=== PATIENT | male | born 1995 | race Caucasian/White ===

== ENCOUNTER 2016-06-22 21:35 | Emergency (ER) | payer BC ==
[2016-06-22] MEDS ORDERED: KETOROLAC TROMETHAMINE 60 MG/2 ML VIAL IM ONE (22:05)
[2016-06-22] MEDS ORDERED: HYOSCYAMINE SULFATE 0.125 MG TAB.SUBL SL SCH (23:00)
[2016-06-22 23:02] LABS: eGFR (African) > 60; eGFR (Non-African) > 60
[2016-06-22 23:47] LABS: BASOPHILS % 0.2 (0.0-1.5); MEAN CORPUSCULAR HEMOGLOBIN 30.8 pg (28.0-34.0); MEAN CORPUSCULAR VOLUME 89.4 fl (80.0-100.0); MONOCYTES % 6.2 % (0.0-11.0); NEUTROPHILS # 5.4 # k/uL (1.4-7.7)
[2016-06-23] MEDS ORDERED: PANTOPRAZOLE SODIUM 40 MG TABLET PO ONE (00:09)
[2016-06-23] MEDS ORDERED: METOCLOPRAMIDE HCL 5 MG TABLET PO ONE (00:09)
[2016-06-23] MEDS ORDERED: MAG HYDROX/AL HYDROX/SIMETH 30 ML UDC PO ONE (00:09)
[2016-06-23] MEDS ORDERED: Lidocaine 2%Visc 15ml 20 MG/ML UDC PO ONE (00:10)
[2016-06-23] MEDS ORDERED: MAGNESIUM HYDROXIDE/AL HYDROX 30 ML UDC PO ONE (00:19)
[2016-06-23] MEDS ORDERED: Lidocaine 2%Visc 15ml 20 MG/ML UDC ONE (00:19)
--- NOTE | 2016-06-23 00:33 | Diagnostic Imaging Report ---
ILIR MARIE~ [facility] [id number] [facility] [address] [place], [place]. [address] ~ ~ ~ ~ Report Submission Date: Jun 22, 2016 10:48:37 PM CDT Patient ~ Study Name: JOSE DE JESUS OLMEDO ~ Date: Jun 22, 2016 10:33:26 PM CDT ~ Modality Type: CT\SR Gender: M ~ Description: CT ABD & PELVIS W/O CO : 89 ~ Institution: [facility] Physician: ILIR MARIE ~ ~ ~ ~ CT abdomen and pelvis without contrast CLINICAL HISTORY: ~ Burning and pain in the mid and lower abdomen for 1 day. ~ TECHNIQUE: ~ CT of the abdomen and pelvis is performed without oral or intravenous administration of contrast. ~Sagittal and coronal reconstructions are performed by the technologist. FINDINGS: ~ The liver and spleen demonstrate normal attenuation without focal defect. ~ Gallbladder is normally distended. ~There is no pancreatic or adrenal abnormality. ~The kidneys are of normal size, shape and position. ~There is no retroperitoneal mass or significant adenopathy. ~The appendix is surgically absent. ~There is no free fluid in the pelvis or abdomen. ~Bladder is within normal limits. ~There is air in the right gluteal region presumed from intramuscular injection. IMPRESSION: ~ Postoperative changes. ~ No acute changes in the abdomen or pelvis. ~ Electronically signed on Jun 22, 2016 10:48:37 PM CDT by: Zaki VILLAVICENCIO
[2016-06-23 02:04] VITALS: BP 107/48
[2016-06-23 05:52] LABS: APPEARANCE,URINE CLEAR (CLEAR); COLOR,URINE YELLOW (YELLOW); OCCULT BLOOD,URINE NEGATIVE (NEGATIVE); UROBILINOGEN URINE 0.2 Eu (0.2-1.0)
--- NOTE | 2016-06-23 06:25 | ED Physician Documentation ---
Abdominal Pain - HISTORIAN Historian: patient - HPI Stated Complaint: abd pain Chief Complaint: Abdominal Pain Additonal Information: Pain across abdomen started today, constant, burning. Pt. in recovery program for meth, heroin, etoh, thc Onset: hours (10) Duration: constant Timing: still present Context: denies: out of country travel, bad food, recent trauma Severity: moderate Quality: burning Front/Back of Body, Lg (Color): 1 - pain Associated Symptoms: none Exacerbated by: nothing Relieved by: nothing Further Comments: no - ROS CONST: no problems GI/: other (abd. pain) CVS/RESP: none EYES/ENT: none MS/SKIN/LYMPH: none NEURO/PSYCH: none - SOCIAL HX Smoking History: cigarettes Alcohol Use: none Drug Use: none - FAMILY HX Family History: no significant history - PAST HX Past History: other (htn) Ischemic Bowel Risk Factors: none Other History: other (gallstones) Surgeries/Procedures: cholecystectomy, other (ortho) Immunizations: referred to PCP Home Medications: Ambulatory Orders Medication Instructions Recorded NK [NK] 06/23/16 Allergies/Adverse Reactions: Allergies Allergy/AdvReac Type Severity Reaction Status Date / Time amoxicillin Allergy Intermediate Hives Verified 06/22/16 22:10 - VITAL SIGNS Vital Signs: Vital Signs Temp Pulse Resp BP Pulse Ox 98.1 F 58 L 14 107/48 99 06/22/16 21:36 06/23/16 01:57 06/23/16 01:57 06/23/16 01:57 06/23/16 01:57 - REVIEWED ASSESSMENTS Nursing Assessment Reviewed: Yes Vitals Reviewed: Yes Progress - Results/Orders Results/Orders: cbc, cmp, amylase, ua, ct abd ordered - Progress Progress: pt. given hyoscyamine 0.25 mg, reglan 10 mg p.o. gi cocktail and protonix 40 mg p.o. with sig. improvement in symptoms Critical Care Note - Critical Care Note Total Time (mins): 0 ED Results Lab/Radiology - Lab Results Lab Results: Lab Results 06/23/16 06/22/16 06/22/16 00:30 22:06 22:06 WBC 8.40 K/ul K/ul (4.00-12.00) RBC 4.90 M/ul M/ul (3.90-5.20) Hgb 15.1 g/dL g/dL (12.0-18.0) Hct 43.8 % % (37.0-53.0) MCV 89.4 fl fl (80.0-100.0) MCH 30.8 pg pg (28.0-34.0) MCHC 34.5 g/dL g/dL (30.0-36.0) RDW 13.2 % % (11.3-14.3) Plt Count 196 K/mm3 K/mm3 (130-400) Neut % (Auto) 63.8 % % (39.0-79.0) Lymph % (Auto) 26.4 % % (16.0-50.0) [place] % (Auto) 6.2 % % (0.0-11.0) Eos % (Auto) 2.0 % % (0.0-6.8) Baso % (Auto) 0.2 (0.0-1.5) Neut # 5.4 # k/uL # k/uL (1.4-7.7) Lymph # 2.2 # k/uL # k/uL (0.6-4.0) Kemper # 0.5 # k/uL # k/uL (0.0-0.9) Eos # 0.2 # k/uL # k/uL (0.0-0.6) Baso # 0.0 # k/uL # k/uL (0.0-0.5) Reactive Lymphs % 1.4 % % (0.0-5.0) Reactive Lymphs # 0.1 # k/uL # k/uL (0.0-0.8) Sodium 140 mmol/L mmol/L (136-145) Potassium 4.0 mmol/L mmol/L (3.5-5.0) Chloride 106 mmol/L mmol/L (98-110) Carbon Dioxide 36 mmol/L H mmol/L (20-32) BUN 17 mg/dL mg/dL (10-26) Creatinine 0.8 mg/dL mg/dL (0.4-1.5) Estimated Creat Clear 140 Est GFR ( Amer) > 60 (60 - ) Est GFR (Non-Af Amer) > 60 (60 - ) Glucose 99 mg/dL mg/dL (70-99) Calcium 9.7 mg/dL mg/dL (8.5-10.5) Total Bilirubin 0.3 mg/dL mg/dL (0.2-1.2) AST 19 U/L U/L (0-41) ALT 18 U/L U/L (0-45) Alkaline Phosphatase 93 U/L U/L (46-116) Total Protein 7.4 g/dL g/dL (6.0-8.5) Albumin 4.7 g/dL g/dL (3.0-5.5) Amylase 66 U/L U/L (20-104) Urine Color Yellow (YELLOW) Urine Appearance Clear (CLEAR) Urine pH 6.0 (5.0 - 8.0) Ur Specific [place] 1.020 (1.010-1.030) Urine Protein Negative mg/dL mg/dL (NEGATIVE) Urine Ketones Trace mg/dL H mg/dL (NEGATIVE) Urine Occult Blood Negative (NEGATIVE) Urine Nitrite Negative (NEGATIVE) Urine Bilirubin Negative (NEGATIVE) Urine Urobilinogen 0.2 Eu Eu (0.2-1.0) Ur Leukocyte Esterase Negative (NEGATIVE) Urine Glucose Negative mg/dL mg/dL (NEGATIVE) - Radiology Radiology Impressions: ct abd. neg - Orders Orders: ED Orders Category Date Time Status CT ABD & PELVIS W/O CON Stat Exams 06/22/16 Completed AMYLASE Routine Lab 06/22/16 22:06 Completed CBC/PLATELET/DIFF Routine Lab 06/22/16 22:06 Completed CMP Routine Lab 06/22/16 22:06 Completed UA MACRO DIP ONLY Routine Lab 06/23/16 00:30 Completed Hyoscyamine Sulfate [Oscimin Sl] Med 06/22/16 23:00 Discontinued 0.25 mg SL Q6H Ketorolac Tromethamine [Toradol] Med 06/22/16 22:05 Discontinued 60 mg IM NOW ONE Lidocaine 2%Visc 15ml [Xylocaine] Med 06/23/16 00:10 Discontinued 15 mg PO NOW ONE Lidocaine 2%Visc 15ml [Xylocaine] Med 06/23/16 00:19 Discontinued 300 mg .ROUTE .STK-MED ONE Mag Hydrox/Al Hydrox/Simeth [Mylanta] Med 06/23/16 00:09 Discontinued 30 ml PO NOW ONE Magnesium Hydroxide/Al Hydrox [Maalox] Med 06/23/16 00:19 Discontinued 30 ml PO .STK-MED ONE Metoclopramide HCl [Reglan] Med 06/23/16 00:09 Discontinued 5 mg PO NOW ONE Pantoprazole Sodium [Protonix] Med 06/23/16 00:09 Discontinued 40 mg PO NOW ONE Abdominal Pain Physical Exam - Physical Exam General Appearance: alert, moderate distress EENT: eye inspection normal, ENT inspection normal, pharynx normal, no signs of dehydration, YU, no nystagmus, TM's nml NECK: normal inspection, thyroid normal, supple RESPIRATORY: no resp distress, chest non-tender, breath sounds normal CVS: reg rate & rhythm, heart sounds normal, equal pulses, no murmur ABDOMEN: soft, no organomegaly, normal bowel sounds, no abdominal bruit, no distension, tenderness (generalized) BACK: normal inspection, no CVA tenderness SKIN: warm/dry, normal color EXTREMITIES: non-tender, normal range of motion, no evidence of injury NEURO: oriented X3, CN's nml as tested, motor nml, sensation nml, mood/affect nml, cognition normal Vital Signs: Vital Signs Temp Pulse Resp BP Pulse Ox 98.1 F 58 L 14 107/48 99 06/22/16 21:36 06/23/16 01:57 06/23/16 01:57 06/23/16 01:57 06/23/16 01:57 Discharge Clincal Impression: abdominal cramping Referrals: Yakov Clarke MD [Primary Care Provider] - 2 Days Home Medications: Ambulatory Orders NK [NK] 06/23/16 Comments: discharged with script for bentyl 20 mg p.o. qid #10 Condition: Stable Disposition: 01 HOME, SELF-CARE Decision to Admit: NO Decision Time: 01:50
== END 2016-06-23 01:20 | disposition home or self-care (01) ==
LOC: ED 21:35 → EDSTATUS 21:36 → ED 06-23 01:20
DX: R10.9 Unspecified abdominal pain (principal)
CPT/HCPCS: 74176; 80053; 81002; 82150; 85025; A9270; J1885; 96372; 99283

== ENCOUNTER 2017-01-02 00:01 | Emergency (ER) | payer OTHER ==
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
[2017-01-02 01:46] VITALS: BP 134/80
== END 2017-01-02 01:25 | disposition home or self-care (01) ==
LOC: ED 00:01 → EDBD 00:01 → ED 01:25
DX: F45.8 Other somatoform disorders (principal); F19.11 Other psychoactive substance abuse, in remission
CPT/HCPCS: 99283

== ENCOUNTER 2017-04-03 08:06 | Outpatient (CLI) | payer BC ==
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
== END 2017-04-03 08:07 ==
LOC: RAD 08:06
PROVIDERS: ATTEND Family Medicine
DX: S09.90XA Unspecified injury of head, initial encounter (principal); R11.0 Nausea; R11.10 Vomiting, unspecified
CPT/HCPCS: 70450